=== PATIENT | male | born 1990 | race Caucasian/White ===

== ENCOUNTER 2018-11-27 21:06 | Emergency (ER) | payer BC, SELFPAY ==
[2018-11-27 21:07] VITALS: BP 165/104; PULSE 127; RESP 24; TEMP 37.2; O2SAT 95; BMI 34.0
--- NOTE | 2018-11-27 21:52 | ED.VISSUMM ---
- ER Visit Summary Date of Service: 11/27/18 Chief Complaint: Bleeding varicose vein History of Present Illness: The patient is a 28 M presents to the emergency department with a bleeding varicosity. Patient has had a history of varicose veins. He is obese and drives truck. He states that he had outpouching of the veins in the back of his calves for some time. States that tonight, he was sitting just watching TV. He states it began to bleed. To try to help pressure but was bleeding around it. Shira got there, placed a pressure dressing and brought him in. He denies any weakness or lightheadedness. He is on no anticoagulants. He is never sought treatment for these varicosities in the past. Physical Examination: Exam is relatively unremarkable. There is a well-appearing obese male in no acute distress. Examination of the lower extremity does demonstrate a bleeding varicosity with a small pinhole with persistent bleeding. There is no pulsatile spurt. The pulses in his leg are normal. His compartments are soft. There is no cellulitis. Test Results: [] Emergency Department Course and Treatment: Pressure dressing was applied with let. After 15 minutes, I did remove the dressing. His bleeding seemed to stop, when I barely grazed the wound, began to bleed again. Given the amount of pressure that this is under, I did not feel that surgery from was going to be appropriate treatment. I did elect to place a [id number]-[id number] stitch in the varicosity. This was done. There was no further bleeding. The patient was observed. He was able to ambulate to the bathroom without any further bleeding. His repeat vitals were improved. He had no further pain. At this time, I do feel the patient is safe for discharge with outpatient follow-up. He will be given referral for vascular surgery. He was counseled on local wound care and reasons to return. Treatment Plan: [] Disposition: Discharge Impression: 1. Bleeding varicosity with [id number] suture closure This note was generated with [employer] dictation software. It may contain incorrect words, spelling, and punctuation that were not noted in review of the chart prior to signing ED Disposition - Plan for ED Patient: Chief Complaint: Lower Extremity Injury Instructions: ED Veins Varicose Referrals: Rafael Diaz DO [Primary Care Provider] - Ousmane Meza MD [STAFF PHYSICIAN] -
[2018-11-27] MEDS: Lidocaine/Epi/Tetracaine 50 ML 1 APPLIC TOPICAL (21:58)
[2018-11-27 22:24] VITALS: BP 155/87; PULSE 112; RESP 18; O2SAT 95
[2018-11-27 22:57] VITALS: BP 134/85; PULSE 112; RESP 18; O2SAT 94
--- NOTE | 2018-11-27 22:58 | ED.RN ---
I HAD PATIENT STAND UP PRIOR TO DISCHARGE TO MAKE SURE HE WASN'T HAVING ANY SIGNS OF DIZZINESS. NO SIGNS OF DIZZINESS NOTED. PATIENT IS JUST TIRED HE SAID. VITALS HAVE IMPROVED FOR DISCHARGE. DISCHARGE INSTRUCTIONS GIVEN.
== END 2018-11-27 22:59 | disposition home or self-care (01) ==
LOC: ED 21:42
PROVIDERS: Emergency Provider Emergency Medicine; Family Provider Preventive Medicine Occupational Medicine; PCP Preventive Medicine Occupational Medicine
DX: I83.892 Varicose veins of left lower extremity with other complications (principal); E66.9 Obesity, unspecified; E11.9 Type 2 diabetes mellitus without complications; Z79.84 Long term (current) use of oral hypoglycemic drugs; Z79.899 Other long term (current) drug therapy
CPT/HCPCS: 35226; 99284

== ENCOUNTER → 2019-06-25 | Outpatient (CLI) | payer OTHER, SELFPAY ==
--- NOTE | 2019-06-25 12:44 | VDLE_ITS ---
Reason For Study: swelling Procedure LEFT Exam performed in department. CFV is compressible, spontaneous, phasic, The study was technically difficult. competent, and demonstrates normal Due to morbid obesity. augmentation. FV is compressible, spontaneous, phasic, competent and demonstrates normal augmentation. POP V is compressible, spontaneous, phasic, competent and demonstrates normal augmentation. T/P Trunk is compressible. PTV is compressible. PER V was not visualized. NON vascular structure noted in pop fossa space with diameter of 2.01 x 3.9 cm in transverse: 2.01 x 4.47 cm in sagital. SFJ is competent and measures 1.16 x 1.55 cm. GSV proximal thigh measures 1.16 x 1.55 cm. GSV above knee is INCOMPETENT for greater than 0.5 seconds. SSV proximal calf is INCOMPETENT for greater than 0.5 seconds and measures 0.39 0.42 cm. Interpretation Summary 1. Left no DVT. 2. Left GSV dialted 11mm iwth reflux 3. Left LSV 4.2mm nd reflux 4. Presumed bakers cyst left popliteal fossa. Ordering Physician: Ousmane Meza Referring Physician: Rafael Diaz Performed By: Lily Davis, DEVIN, RVT
== END | disposition home or self-care (01) ==
LOC: CVS 12:43
PROVIDERS: Family Provider Preventive Medicine Occupational Medicine; PCP Preventive Medicine Occupational Medicine; Referring Provider Surgery Vascular Surgery; Visit Provider Surgery Vascular Surgery
DX: M79.89 Other specified soft tissue disorders (principal); I83.892 Varicose veins of left lower extremity with other complications; M79.609 Pain in unspecified limb
CPT/HCPCS: 93971

== ENCOUNTER 2019-11-19 23:40 | Emergency (ER) | payer OTHER, SELFPAY ==
[2019-11-19 23:41] VITALS: BP 159/88; PULSE 122; RESP 20; TEMP 36.3; O2SAT 93; BMI 78.2
--- NOTE | 2019-11-19 23:50 | ED.VIS.GEN ---
History of Present Illness Chief Complaint: Nausea/Vomiting/Diarrhea Informant: Patient Narrative: Patient stated he has had 8 episodes of emesis and 3 episodes of loose watery diarrhea this evening. Started around 4 PM today. Has had some intermittent abdominal cramping. No cramping currently. He just feels nauseous at this time. No sick contacts. No bad food exposures except he ate a burger approximately 24 hours ago. No fevers or chills. No previous history of this. History of [id number]-genzwqgjp diabetes. Current severity is moderate. Past Medical History - Allergies and Home Meds Allergies/Adverse Reactions: Allergies No Known Allergies Allergy (Verified 11/19/19 23:40) Primary Care Physician: Rafael Diaz DO [Primary Care Provider] - Prior records reviewed: Yes Past Medical History: - - Diabetes Surgical History: - - Umbilical hernia Lives: With Family Smoking Status: Light Smoker (<10/day) Alcohol: Occasional Drugs: None Review of Systems General: Denies: Chills, Fever, Sweats Eyes: Denies: Visual changes - bilaterally, Diplopia ENT: Denies: Rhinorrhea, Sore throat Cardiovascular: Denies: Chest pain, Palpitations Respiratory: Denies: Dyspnea, Cough, Dyspnea on exertion Gastrointestinal: Reports: Nausea, Vomiting, Diarrhea. Denies: Abdominal pain, Melena, Hematochezia Genitourinary: Denies: Dysuria, Hematuria, Frequency Musculoskeletal: Denies: Back pain, Extremity Pain Skin: Denies: Rash, Wounds Neurological: Denies: Headache, Weakness, Numbness Physical Exam Vital Signs/Narrative: Vital Signs Temp Pulse Resp BP Pulse Ox 11/19/19 23:41 97.3 F L 122 H 20 H 159/88 H 93 General: Well nourished, Well developed, No Acute Distress Head: Normocephalic, Atraumatic Eyes: Perrl, EOMI ENT: Moist mucous membranes, No rhinorrhea Neck: Supple, Nontender Cardiovascular: Regular rate, No murmurs, Tachycardia. Negative for: Regular rhythm Respiratory: No distress, CTA bilaterally, Chest nontender Abdomen: Soft, Nontender, Nondistended, Normal bowel sounds Back: Nontender, Normal Inspection Extremities: Nontender, No edema Skin: Normal color, No rash Neurological: Alert, Oriented x3, Cranial nerves II-XII grossly intact, Normal Strength, Normal Sensation Psychological: Normal affect, Normal Mood Diagnostic/Tx/Re-eval - Medical Decision Making Nontoxic. Given IV fluids Zofran Toradol and Imodium. At this time I think he likely has a viral based vomiting and diarrhea syndrome. Not feel he needs lab work or imaging. On reevaluation after treatment the patient is resting comfortably. Symptoms have resolved. Will be discharged with Bentyl Zofran and will use [id number] Imodium. We will follow-up as an outpatient ED Disposition - Plan for ED Patient: Disposition: Home or Assisted Living Diagnosis: Nausea vomiting and diarrhea Instructions: GASTROENTERITIS, Viral (7y-Adult) Prescriptions: Dicyclomine HCl [Bentyl] 20 mg PO TIDAC #20 cap Prescription Printed Ondansetron [Zofran Odt] 4 - 8 mg PO Q8H PRN PRN #10 tab PRN Reason: Nausea Prescription Printed Referrals: Rafael Diaz DO [Primary Care Provider] -
[2019-11-20] MEDS: 0.9% Normal Saline 1,000 ML 1000 ML IV (00:06)
[2019-11-20] MEDS: Ketorolac 15 MG/ML Vial IV (00:07)
[2019-11-20] MEDS: Loperamide 2 MG Capsule 4 MG PO (00:07)
[2019-11-20] MEDS: Ondansetron 4 MG/2 ML Vial IV (00:07)
[2019-11-20 01:13] VITALS: BP 102/49; PULSE 115; RESP 20; O2SAT 95
== END 2019-11-20 01:15 | disposition home or self-care (01) ==
PROVIDERS: Emergency Provider Emergency Medicine; PCP Preventive Medicine Occupational Medicine
DX: R11.2 Nausea with vomiting, unspecified (principal); R19.7 Diarrhea, unspecified; E11.9 Type 2 diabetes mellitus without complications; F17.200 Nicotine dependence, unspecified, uncomplicated; Z79.4 Long term (current) use of insulin
CPT/HCPCS: 96361; 96374; 96375; 99285; J2405